=== PATIENT | male | born 1995 | race Hispanic/Latino ===

== ENCOUNTER 2021-06-29 14:54 | Emergency (ER) | payer SELFPAY ==
[~2021-06-29] VITALS: Ht 177.8 cm; Wt 90.0 kg
[2021-06-29] MEDS ORDERED: MUPIROCIN21 TOP (15:24)
[2021-06-29] MEDS ORDERED: CEPHALEXIN500 M1 PO (15:24)
[2021-06-29 15:42] VITALS: BP 146/94
== END 2021-06-29 16:27 | disposition home or self-care (01) | DRG 607 ==
LOC: ED 14:54
PROC: 0HBRXZZ Excision of Toe Nail, External Approach (ICD-10-PCS; principal; 2021-06-29)
DX: L60.0 Ingrowing nail (principal)